=== PATIENT | male | born 1975 | race Caucasian/White ===

== ENCOUNTER 2024-02-02 14:04 | Outpatient (CLI) | payer BC ==
[2024-02-02] MEDS ORDERED: iohexol 350MG/ML 100ml bottle IV ONE (14:19)
== END 2024-02-02 23:59 | disposition home or self-care (01) ==
LOC: RAD 14:04
PROVIDERS: ATTEND Nurse Practitioner Family
DX: K76.0 Fatty (change of) liver, not elsewhere classified (principal); R10.84 Generalized abdominal pain; R19.15 Other abnormal bowel sounds; K59.00 Constipation, unspecified; M47.816 Spondylosis without myelopathy or radiculopathy, lumbar region; M77.9 Enthesopathy, unspecified; K31.89 Other diseases of stomach and duodenum
CPT/HCPCS: 74178; Q9967

== ENCOUNTER 2025-03-04 21:07 | Emergency (ER) | payer BC ==
[~2025-03-04] VITALS: Ht 177.8 cm; Wt 98.6 kg
[2025-03-04 21:17] VITALS: BP 145/89; PULSE 86; TEMP 97.8; O2SAT 100
--- NOTE | 2025-03-04 23:40 | Physician Documentation ---
History of Present Illness ~ Chief Complaint: Back Pain Stated Complaint: SIDE PAIN Time Seen by MD: 22:33 HPI This is a 49-year-old male who presents with one month of left-sided thoracic back pain patient reports that pain began after he tried to catch a falling slot machine at work, patient is reports the pain has been increasing over time and he can not stand the pain, patient reports that he was seen by primary care who has ordered imaging of the area however he has not had imaging taken yet. Patient describes the pain as a diffuse sharp and stabbing pain that has worse lying down. Patient reports no recent fever, no recent weight loss, no history of cancer, no history of IV drug use, no history of tuberculosis. Patient reports no new or progressive numbness or weakness in legs, no saddle paresthesias, and no loss of bowel or bladder control. Medication Reconciliation Allergies: Coded Allergies: No Known Allergies (Unverified , 03/04/25) Scheduled Cyclobenzaprine* (Cyclobenzaprine*), 1 TAB PO TID Ibuprofen (Ibuprofen), 1 TAB PO Q8H Lidocaine (Lidoderm), 1 PATCH TOP DAILY Past Medical History Past Medical History: No Pertinent History Review of Systems ROS As stated above in the HPI, otherwise all systems are reviewed and negative. Physical Exam Physical Exam Vital Signs: Temperature: 97.8, Source: Temporal, Heart Rate: 86, Respiratory Rate: 16, BP: 145/89, Pulse Oximetry: 100, Weight: 98.600 Oxygen Flow Rate: 0 Physical Exam VITALS: Reviewed and as above. GENERAL: Alert, nontoxic appearing, no apparent distress. RESPIRATORY: No increased work of breathing, no respiratory distress, speaking in full clear sentences, clear lung sounds in all fuentes CHEST: Nontender palpation CV: Rate and rhythm no murmur BACK: Left posterior thoracic cloth washer back tender to palpation, palpable muscle spasm extending from trapezius to costal margin, no ecchymosis, no erythema, no central spinal tenderness, no step-offs, no crepitus,no CVA tenderness Progress Results/Orders Results/Orders Completed Orders - JAYCE GARCIA Ketorolac Trometh 15mg/Ml Vial (Toradol (03/04/25 23:25) Cyclobenzaprine Tablet (Flexeril Tablet) (03/04/25 23:25) Ondansetron Disint. Tablet (Zofran Odt T (03/04/25 23:25) Lidocaine 5% Patch (Lidoderm 5% Patch) (03/04/25 23:25) Vital Signs 03/04/25 03/04/25 21:17 23:57 Temp 97.8 Pulse 86 Resp 16 16 B/P (MAP) 145/89 Pulse Ox 100 O2 Flow Rate 0 Medical Decision Making Findings This 49-year-old male presented with one month of left-sided thoracic back pain, patient is being followed by primary care provider however pain was not well managed at home. It was reassuring patient reports no new or progressive numbness or weakness in legs, no saddle paresthesias, no loss of bowel or bladder control, and no history of recent trauma, IV drug use, tuberculosis, or cancer therefore imaging was not indicated. Physical exam demonstrated tenderness to the left thoracic back without central spinal tenderness, there was palpable muscle tension on exam which is consistent with muscle spasm. Patient was medicated for pain reporting adequate pain control, patient will be discharged on medications for back pain and will follow up with primary care provider as scheduled. Patient provided careful return to care precautions, follow up instructions, and home care instructions which he verbalized understanding of. Differential Dx:Considerations: Include: Musculoskeletal pain, Pyelonephritis, Strain, Urolithiasis, Urinary tract infection, Other (Cauda equina, rib fractures, spinal fracture) Departure Time of Disposition: 00:20 Disposition: 01 HOME / SELF CARE / HOMELESS Impression: Primary Impression: Acute thoracic back pain Qualified Codes: M54.6 - Pain in thoracic spine Condition: Improved Discharge Instructions: Acute Back Pain, Adult Additional Instructions: Follow up as scheduled with your primary care provider for continued workup of the cause of your back pain, it is reassuring you responded well to the pain medications, continue use the prescribed medications for your pain, do not drive or operate heavy machinery on the muscle relaxers. Take ibuprofen with food to avoid stomach upset. Please follow up with your primary care provider in the next few days. Please return to the emergency department for any new or worsening concerning symptoms. Referrals: NO PRIMARY CARE PROVIDER (PCP) Prescriptions Ibuprofen (Ibuprofen) 800 Mg Tablet 1 TAB PO Q8H for pain for 10 Days, #30 TAB 0 Refills Prov: JAYCE GARCIA [employer]INTAINER 03/05/25 Lidocaine (Lidoderm) 5 % Adh..patch 1 PATCH TOP DAILY for 10 Days, #10 PATCH 0 Refills may wear up to 12 hours Prov: JAYCE GARCIA 03/05/25 Cyclobenzaprine* (Cyclobenzaprine*) 10 Mg Tablet 1 TAB PO TID, #15 TAB Prov: JAYCE GARCIA 03/05/25 Education Educated: Patient, Family Educated regarding: diagnosis, treatment, prognosis, need for follow up Signature Scribe Signature: No scribe Attestation: The note accurately reflects work and decisions made by me.YULISA Galarza 03/05/25 17:00 JAYCE GARCIAP Mar 04, 2025 23:40
[2025-03-04 23:57] VITALS: RESP 16
[2025-03-04] MEDS: ketorolac trometh 15mg/ml vial 15 MG/ML ML IM ONE (23:57)
[2025-03-04] MEDS: ondansetron 4mg rapidly disintigrating tab PO ONE (23:59)
[2025-03-05] MEDS ORDERED: CYCL-1 PO (00:22)
[2025-03-05] MEDS ORDERED: LIDO-52 TOP (00:22)
[2025-03-05] MEDS ORDERED: IBUP-1986 PO (00:22)
== END 2025-03-05 00:31 | disposition home or self-care (01) ==
LOC: ER 21:07
DX: M54.6 Pain in thoracic spine (principal)
CPT/HCPCS: 96372; 99284; J1885